=== PATIENT | female | born 2000 | race Caucasian/White ===

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

== ENCOUNTER 2023-08-03 10:38 | Inpatient (IN) | payer BC, SELFPAY ==
[2023-08-03] VITALS (83 sets, daily range): BP systolic 82–153; BP diastolic 41–109; PULSE 46–148; RESP 16–20; TEMP 36.8–37.2; O2SAT 98–100
[2023-08-03] MEDS: LACTATED RINGERS 1,000 ML 125 ML IV CONT (12:08)
[2023-08-03 12:12] LABS: Basophils Percent Auto 0.2 % (0.2-1.2); Eosinophils Absolute Auto 0.1 K/mm3 (0-0.3); Eosinophils Percent Auto 1.4 % (0-4.4); Hematocrit 36.8 % (37.0-47.0); Hemoglobin 12.4 g/dL (12.0-15.0); Immature Granulocyte Absolute 0.04 K/mm3 (0.00-0.031); Immature Granulocyte Percent A 0.4 % (0-0.5); Lymphocytes Absolute Auto 1.67 K/mm3 (0.9-3.2); Lymphocytes Percent Auto 18.2 % (18.3-44.2); Mean Corpuscular HGB Conc 33.7 g/dl (32-36); Mean Corpuscular Hemoglobin 29.2 pg (26-34); Mean Corpuscular Volume 86.6 fl (80-100); Mean Platelet Volume 11.8 fl (7.4-10.4); Monocytes Absolute Auto 0.8 K/mm3 (0.1-0.6); Monocytes Percent Auto 8.5 % (2.6-8.5); Neutrophils Absolute Auto 6.5 K/mm3 (1.3-6.7); Neutrophils Percent Auto 71.3 % (45.5-73.1); Platelet Count Result 249 k/mm3 (150-375); Red Blood Count 4.25 M/mm3 (4.2-5.4); Red Cell Distribution Width 12.6 % (11.5-14.5); White Blood Count 9.2 K/mm3 (4.5-10.0)
--- NOTE | 2023-08-03 12:12 | ADMGEN ---
This patient, Carmen Lizama, was admitted to Labor/Delivery/Recovery 105-00. Patient/family oriented to hospital policies and general routines including ID bracelet, bed and alarms, visiting hours, pain management, procedures, bathroom and other care routines, personal items, smoking policy, room service/diet, and visiting hours. Information on how to activate the Rapid Response Team has been discussed. Patient/Family are encouraged to report perceived risks to care and to ask questions if they do not understand what they are told or what they should do.
--- NOTE | 2023-08-03 12:14 | LDADM ---
This patient, Carmen Lizama, was admitted to Labor/Delivery/Recovery 105 on 08/03/23 at 10:39. Plans for labor, pain management and were discussed with patient. Patient/family oriented to hospital policies and general routines including ID bracelet, bed and alarms, visiting hours, pain management, procedures, bathroom and other care routines, personal items, smoking policy, room service/diet and guest tray routines, infant security routines, and visiting hours. Patient/Family are encouraged to report perceived risks to care and to ask questions if they do not understand what they are told or what they should do. See OBIX for further documentation.
--- NOTE | 2023-08-03 12:17 | PM.IMHP ---
H&P: HPI History of Present Illness Date/Time: 08/03/23 12:17 Chief Complaint: leakage of fluid Narrative: Carmen is a 23yo @ 36.4wks who presented to L&D w/ complaints of leakage of fluid since 0830 this morning. She is having contractions. No vaginal bleeding. She has been feeling good movements. She has had care at [place]. She has a h/o x1; that complicated by IUGR. Review of Systems Constitutional: Constitutional: Denies chills, Denies fever(s) and Denies headache(s) Eyes: Eyes: Denies change in vision ENT: Denies headache(s) Cardiovascular: Cardiovascular: Denies chest pain and Denies dyspnea Respiratory: Respiratory: Denies dyspnea Genitourinary: Genitourinary: Denies abnormal vaginal bleeding and Reports vaginal discharge Neurologic: Denies headache(s) Psychiatric: Psychiatric: Denies anxiety and Denies depression [facility] Past Medical History Medical History Chronic depression Healthy female adult Surgical History Surgical History No significant past surgical history Family History Family History Mother Bipolar 1 disorder Depression Social History Social History Smoking status: Never smoker Alcohol intake: never Substance use: never Substance use type: does not use Gender identity (if verbalized by the patient): Female Spiritual care concerns: No Meds Home Medications and Allergies Home Medications Medication Instructions Recorded Confirmed Type paroxetine HCl 20 mg tablet (Paxil) 20 mg PO QAM 10/12/20 10/13/20 History sulfamethoxazole 800 1 tablet PO Q12H #20 tabs 11/18/20 Rx mg-trimethoprim 160 mg tablet (Bactrim DS) Allergies Allergy/AdvReac Type Severity Reaction Status Date / Time No Known Allergies Allergy Verified 11/18/20 13:10 Vital Signs Vital Signs - 24 hr 08/03/23 11:05 08/03/23 11:15 08/03/23 11:31 Pulse Rate 71 68 68 Blood Pressure 125/83 127/85 125/81 08/03/23 11:46 08/03/23 12:01 08/03/23 12:16 Pulse Rate 64 70 64 Blood Pressure 131/75 135/83 119/79 Exam Const: General: cooperative, healthy appearing, no acute distress and obese Nutritional Appearance: obese Orientation/consciousness: patient oriented x3 Resp: Effort & Inspection: normal respiratory effort Cardio: Rate: regular rate GI: GI Palp: No abdominal tenderness : Other: FHT's: 140's/ mod evan/ + accels/ occasional variable decels - cat 2 but reassuring TOCO: ctxs q4-6min Cervix: 3.5/80/-3 Membranes: grossly ruptured, clear Presentation: cephalic Skin: General skin exam: normal color Neuro: General: patient oriented x3 Extrem: General: normal to inspection Psych: Appearance: grossly normal Affect: normal affect Attitude: cooperative Assessment and Plan Assessment and plan (1) premature rupture of membranes (PPROM) with unknown onset of labor: Code(s): O42.919 - premature rupture of membranes, unspecified as to length of time between rupture and onset of labor, unspecified trimester Status: Acute Plan - PROM after 34wks in early labor -- will admit for augmentation and delivery - GBS unknown and ; will treat for GBS ppx w/ amp - ANCS; betamethasone 12mg IM - continuous monitoring; currently reassuring - anesthesia consult PRN pain
[2023-08-03] MEDS: AMPICILLIN 2 GM/NS 100 ML 2 GM/100 ML BAG IVPB (12:40)
[2023-08-03] MEDS: BETAMETHASONE SOD PHOS/ACETATE 30 MG/5 ML VIAL 12 MG IM (12:40)
--- NOTE | 2023-08-03 13:01 | WPDANESEPP ---
Anes - Eval Pre Procedure Procedure: epidural for labor Date/Time: 08/03/23 13:01 Surgeon: [place] Preop Diagnosis: pain during labor Pre Op Diagnosis: leaking Patient Data Age: 23 Gender: F Height: Weight: Last Vital Signs Pulse 76 08/03/23 12:46 BP 138/93 H 08/03/23 12:46 O2 Del Method Room Air 08/03/23 12:12 Allergies Allergy/AdvReac Type Severity Reaction Status Date / Time No Known Allergies Allergy Verified 11/18/20 13:10 Home Medications Medication Instructions Recorded Confirmed Type paroxetine HCl 20 mg tablet (Paxil) 20 mg PO QAM 10/12/20 10/13/20 History sulfamethoxazole 800 1 tablet PO Q12H #20 tabs 11/18/20 Rx mg-trimethoprim 160 mg tablet (Bactrim DS) Laboratory Tests 08/03/23 12:01 WBC 9.2 K/mm3 (4.5-10.0) RBC 4.25 M/mm3 (4.2-5.4) Hgb 12.4 g/dL (12.0-15.0) Hct 36.8 L % (37.0-47.0) MCV 86.6 fl (80-100) MCH 29.2 pg (26-34) MCHC 33.7 g/dl (32-36) RDW 12.6 % (11.5-14.5) Plt Count 249 k/mm3 (150-375) MPV 11.8 H fl (7.4-10.4) Immature Gran % (Auto) 0.4 % (0-0.5) Neut % (Auto) 71.3 % (45.5-73.1) Lymph % (Auto) 18.2 L % (18.3-44.2) [place] % (Auto) 8.5 % (2.6-8.5) Eos % (Auto) 1.4 % (0-4.4) Baso % (Auto) 0.2 % (0.2-1.2) Lymph # (Auto) 1.67 K/mm3 (0.9-3.2) [place] # (Auto) 0.8 H K/mm3 (0.1-0.6) Eos # (Auto) 0.1 K/mm3 (0-0.3) Baso # (Auto) 0.0 K/mm3 (0.0-0.1) Abs Immat Gran (auto) 0.04 H K/mm3 (0.00-0.031) Absolute Neuts (auto) 6.5 K/mm3 (1.3-6.7) Absolute Nucleated RBC 0.0 K/mm3 (0.0-0.012) Nucleated RBC % 0.0 % (0.0-0.2) RPR Pending Blood Type Pending Antibody Screen Pending Patient hx anesthesia problems: none Family hx anesthesia problems: none Results Review: All pre-operative results and documents have been reviewed as part of the pre-operative evaluation. [facility] Past Medical History Medical History Chronic depression Healthy female adult Surgical History Surgical History No significant past surgical history Family History Family History Mother Bipolar 1 disorder Depression Social History Social History Smoking status: Never smoker Alcohol intake: never Substance use: current Substance use type: does not use Lack of Transportation: No Lack of Food: Never True Current Housing: I Have Housing Concerned About Future Housing: No Difficulty Paying Gas/Electric Bills: No Difficulty Paying for Meds: No Currently Unemployed: No Education: High School Diploma/GED Difficulty w/ Childcare or Family Care: No Gender identity (if verbalized by the patient): Female Spiritual care concerns: No Exam Day of Procedure 08/03/23 13:01 Patient weight: normal Lungs: clear to auscultation Airway: Mallampati scale class II Neurological: alert and oriented
--- NOTE | 2023-08-03 13:07 | WPDHPUPDATE1 ---
History and Physical Update Update Date/Time: 08/03/23 13:07 History and Physical has been reviewed, including an updated exam of the patient. There are NO changes in the patient's condition. Risks, benefits, and alternatives have been discussed and questions answered. Patient agrees to proceed with procedure.
[2023-08-03] MEDS: OXYTOCIN 30 UNITS/NS 500 ML 30 UNITS/500 ML BAG 999 UNITS IV CONT (14:00)
--- NOTE | 2023-08-03 14:08 | PM.OBPRVD ---
OB - Delivery Note Procedure Delivery date: 08/03/23 Events: Premature Rupture of Membranes (GBS unknown) Delivery monitor: External FHT and External Uterine Route of delivery: Laceration Description: Periurethral Specimen: Yes (placenta) Quantitative Blood Loss (ml): 150 Anesthesia type: Epidural Disposition: Floor [place] Baby Date of : 08/03/23 Time of : 13:56 Weeks of gestation at delivery: 36 (4) Infant gender: Female Weight (pounds): 4 Weight (ounces): 10 presentation: vertex Placenta delivery description: Spontaneous Cord Vessel Description: 3 Vessels, Nuchal Cord, Loose (/delivered through) and Delayed Cord Clamping score one minute: 9 score five minutes: 9 Narrative: Carmen received her epidural and rapidly progressed to complete dilation with strong desire to push. She pushed for 2 contractions and delivered the head over intact perineum. Nuchal cord was noted but loose and delivered through. She easily delivered the infant's shoulders and body without complication. The infant was immediately placed skin to skin and had spontaneous cry. Delayed cord clamping was performed. The umbilical cord was then doubly clamped and cut. A segment of cord was collected for cord gases. The remaining cord blood was collected for typing. With Pitocin running and gentle downward traction on the cord, the placenta delivered without complications. She was found to be firm with minimal bleeding. She was examined and a small periurethral laceration was identified but not bleeding therefore no stitch was placed. Sponge, lap, instrument, needle counts were correct at the end of the procedure. Mom and baby were left bonding birthing suite in stable condition. [facility] Delivery Billing Delivery Delivery: Delivery Charge
[2023-08-03] MEDS: OXYTOCIN 30 UNITS/NS 500 ML 30 UNITS/500 ML BAG 125 UNITS IV CONT (14:37)
--- NOTE | 2023-08-03 17:00 | PC.NURSE ---
Patient transferred to post room #292 via wheelchair. Support person present. Oriented to unit, room, information board, rooming in, admission packet and security measures. Patient verbalizes understanding.
[2023-08-03] MEDS: ZOLPIDEM TARTRATE (*CRX) 5 MG TABLET PO (18:55)
[2023-08-03] MEDS: BENZOCAINE 20% AER SPR (*SP) 56 GM CAN 1 SPRAY TOPICAL (18:55)
[2023-08-03] MEDS: IBUPROFEN 600 MG TABLET PO (18:55)
[2023-08-03] MEDS: SULFAMETHOXAZOLE/TRIMETHOPRIM 800/160 MG DS TABLET 1 TAB PO (21:03)
[2023-08-04] MEDS: IBUPROFEN 600 MG TABLET PO (03:50)
[2023-08-04 04:56] LABS: Hematocrit 39.6 % (37.0-47.0); Hemoglobin 13.1 g/dL (12.0-15.0)
--- NOTE | 2023-08-04 07:22 | PM.OBPNVD ---
OB - PN: Subj Subjective Date/time seen: 08/04/23 07:22 Narrative: PPD#1 Carmen reports doing well today. 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 Her pain is controlled. She is tolerating regular diet, voiding, passing gas, and ambulating without issues. She would like to be discharged to no care bed tomorrow as her daughter will need to stay until she grows. OB - PN: Obj Data Labs 08/04/23 03:44 Labs: Laboratory Results - last 24 hr 08/03/23 08/04/23 12:01 03:44 WBC 9.2 RBC 4.25 Hgb 12.4 13.1 Hct 36.8 L 39.6 MCV 86.6 MCH 29.2 MCHC 33.7 RDW 12.6 Plt Count 249 MPV 11.8 H Immature Gran % (Auto) 0.4 Neut % (Auto) 71.3 Lymph % (Auto) 18.2 L [place] % (Auto) 8.5 Eos % (Auto) 1.4 Baso % (Auto) 0.2 Lymph # (Auto) 1.67 [place] # (Auto) 0.8 H Eos # (Auto) 0.1 Baso # (Auto) 0.0 Abs Immat Gran (auto) 0.04 H Absolute Neuts (auto) 6.5 Absolute Nucleated RBC 0.0 Nucleated RBC % 0.0 Blood Type O Positive Antibody Screen Negative OB - PN A/P Assessment and Plan (1) delivery, delivered: Code(s): O60.10X0 - labor with delivery, unspecified trimester, not applicable or unspecified Status: Acute Plan day: 1 Plan: routine care and discharge home (tomorrow to no care bed) Comments: - Pelvic rest; take meds as prescribed - ER return precautions: fever, n/v/abd pain, bleeding, HTN Time Spent With Patient Time: Total time spent is greater than 50% in coordination of care (as documented) at patient's floor/unit and/or counseling patient: Review of Systems Constitutional: Constitutional: Denies chills, Denies fever(s) and Denies headache(s) Eyes: Eyes: Denies change in vision ENT: Denies dizziness and Denies headache(s) Cardiovascular: Cardiovascular: Denies chest pain, Denies palpitations and Denies dyspnea Respiratory: Respiratory: Denies cough and Denies dyspnea Gastrointestinal: Gastrointestinal: Denies nausea and Denies vomiting Neurologic: Denies dizziness and Denies headache(s) Endocrine: Endocrine: Denies palpitations Exam Const: General: cooperative, comfortable and no acute distress Orientation/consciousness: patient oriented x3 Resp: Effort & Inspection: normal respiratory effort Auscultation: clear to auscultation bilaterally Cardio: Rate: regular rate GI: Inspection: non-distended GI Palp: No abdominal tenderness and Yes Soft to palpation Auscultation: normal bowel sounds : Other: fundus firm Skin: General skin exam: normal color Neuro: General: patient oriented x3 Extrem: General: normal to inspection Psych: Appearance: grossly normal Affect: normal affect Attitude: cooperative
[2023-08-04 08:36] LABS: Rapid Plasma Reagin Non-Reactive (NonReactive)
[2023-08-04 08:55] VITALS: BP 111/67; PULSE 55; RESP 18; TEMP 37.1; O2SAT 100
[2023-08-04 11:58] VITALS: BP 128/64; PULSE 62; RESP 18; TEMP 37; O2SAT 99
--- NOTE | 2023-08-04 12:01 | WPDANLDPN2 ---
Anes-Prog Note L&D Date/Time: 08/04/23 12:01 Neuro status: Neuro function grossly intact. Cardiovascular status: normal Respiratory status: normal Airway patency: baseline Mental status: baseline Post-Op hydration status: normal Vital Signs: Last Vital Signs Temp 37.1 C 08/04/23 08:55 Pulse 55 L 08/04/23 08:55 Resp 18 08/04/23 08:55 BP 111/67 08/04/23 08:55 Pulse Ox 100 08/04/23 08:55 O2 Del Method Room Air 08/03/23 23:45 Pain score (VAS): 2/10 I/O: Intake & Output 08/03/23 08/04/23 08/04/23 23:59 07:59 15:59 Intake Total 120 Balance 120 Post-procedural complaints: none Patient feedback: Patient satisfied with anesthetic care.
[2023-08-04] MEDS: TETANUS,DIPHTHERIA,AC PERTUSSIS ADULT (0.5 ML) BOOSTRIX IM (12:15)
--- NOTE | 2023-08-04 13:32 | PC.NURSE ---
Patient and father of baby requesting discharge home today. Discussed that baby is 36 week low weight baby that hide and skin classer will not discharge today. Patient and father of baby verbalized interesting in taking baby home without discharge order from pedi. Discussed that this would be against medical advice and DCFS may become involved. Patient and father of baby stated that they are having difficulty getting childcare for their 3 year old. Discussed options of one parent leaving or patient becoming no care bed which they can leave baby here and we can save the room and they can come and go as needed. Voiced understanding. OB notified and discharge order received.
--- NOTE | 2023-08-04 14:48 | PCCCNOTE ---
Care Coordination met with pt. and FOB this afternoon to discuss discharge planning. Pt.'s current D/C plan is to return home with baby and her family. Pt. lives with her parents and 3 year old son. Pt. is independent with ADLs and ambulation. She has no medical equipment at home and denies any D/C needs at this time. Pt. is current with [facility] for her other child and will follow up. She has everything needed to safely bring baby home. Pt. denies any DCFS cases opened. Pt. provided basket. Will follow.
--- NOTE | 2023-08-04 16:48 | PC.NURSE ---
Patient viewed the discharge video Mother & Baby Care, The First Two Weeks . Patient was given the opportunity and encouraged to ask questions. Patient verbalized understanding of information shared and has been given the mother/baby guide for home reference.
--- NOTE | 2023-08-05 09:41 | PM.OBDSVD ---
DS: Admitting Diagnosis Discharge Date 08/04/23 Admitting Diagnosis labor PROM DS: Discharge Diagnosis Discharge Diagnosis (1) delivery, delivered: Code(s): O60.10X0 - labor with delivery, unspecified trimester, not applicable or unspecified Status: Acute OB - DS: Summary OB Procedures : Ultrasound OB Procedures Intrapartum: Spontaneous Vag Delivery OB Procedures: : None Peripartum Data Delivery Method: Natural Vaginal complications: none 1: Gender: Female Disposition of : other (admitted for feeding/growing) Status at Discharge Functional status at discharge: independent ambulation Overall status at discharge: patient is back to baseline Time Spent with Patient Time attestation: Total time spent providing and/or coordinating discharge services: Time spent: Less than 30 minutes Exam Const: General: cooperative, comfortable and no acute distress Orientation/consciousness: patient oriented x3 Resp: Effort & Inspection: normal respiratory effort Auscultation: clear to auscultation bilaterally Cardio: Rate: regular rate GI: Inspection: non-distended GI Palp: No abdominal tenderness and Yes Soft to palpation Auscultation: normal bowel sounds : Other: fundus firm Skin: General skin exam: normal color Neuro: General: patient oriented x3 Extrem: General: normal to inspection Psych: Appearance: grossly normal Affect: normal affect Attitude: cooperative DS: Data Data Completed and Pending Pending studies at discharge: Pending at discharge 08/03/23 17:40 Surgical [PTH] Routine Discharge Plan Discharge Attending physician on discharge: Dawna Bojorquez Discharging Clinician: Dawna Bojorquez Anticipated Discharge Date/Time: 08/05/23 10:00 Patient Disposition: Home, Self-Care Activity: pelvic rest Diet: regular Discharge Instructions: Education: Mom and Baby Guide Given to: Mother Follow-Up: Call your delivering provider's office for an appointment to be seen in: 4 Weeks Mom and baby should come to the [facility] for the follow-up appointment. Appointment Date/Time: to be scheduled with baby discharge What to expect at your follow-up visit: Physical Assessment Call [phone] if you are unable to keep your appointment time. BREAST CARE: * Wear a snug supportive bra. * For engorgement discomfort: Bottle Feeding: * May apply ice packs EPISIOTOMY/PERINEAL CARE: * Until bleeding stops, use your maribel bottle after urinating * Change your pad frequently throughout the day * You may take sitz baths several times a day (fill your bathtub with warm water and soak for 20 minutes.) Do NOT bathe in the water * No tub baths until seen by your physician - You may shower ACTIVITY: * Rest as much as possible. * Do not exercise or lift anything heavier than your baby (such as laundry or other children.) * Avoid stairs or driving as much as possible. * Do not put anything into the vagina. No douching, tampons, or sexual activity until seen by physician. NOTIFY PHYSICIAN IF YOU HAVE ANY QUESTIONS OR IF ANY OF THE FOLLOWING SYMPTOMS OCCUR: * If your perineum becomes red, swollen, or more painful than what you have experienced in the hospital. * If your vaginal bleeding becomes foul smelling. * If your vaginal bleeding becomes more heavy than a period or if your bleeding changes from pink to bright red. However, you may pass an occasional walnut-sized clot once or twice for the first week . * If you experience a sharp, shooting pain in you calves. * If you discover a hard, reddened area on your breast or if you experience flu-like symptoms. DIET: * Eat regular, well-balanced meals. * Drink plenty of fluids daily. If , drink to thirst. Stand Alone Forms: General Discharge Information
== END 2023-08-04 16:00 | disposition home or self-care (01) | DRG 560 ==
LOC: ANHLDR 11:19 → ANHOB2 17:07
PROVIDERS: Admitting Provider Obstetrics & Gynecology; PCP Physician Assistant; Visit Provider Obstetrics & Gynecology
DX: O60.14X0 Preterm labor third trimester with preterm delivery third trimester, not applicable or unspecified (principal); Z37.0 Single live birth; O36.5930 Maternal care for other known or suspected poor fetal growth, third trimester, not applicable or unspecified; O69.81X0 Labor and delivery complicated by cord around neck, without compression, not applicable or unspecified; Z3A.36 36 weeks gestation of pregnancy; O71.82 Other specified trauma to perineum and vulva
CPT/HCPCS: 36415; 84112; 85014; 85018; 85025; 86592; 86850; 86900; 86901; 88307; 90715; A9270; J0290; J0702; J2590; J2795; J7120

== ENCOUNTER 2024-02-06 12:36 | Emergency (ER) | payer BC, SELFPAY ==
--- NOTE | ~2024-02-06 | XR_ITS ---
XR chest 2V DATE: 02/06/2024 13:13 INDICATION: Chest pain TECHNIQUE: PA and lateral views COMPARISON: None FINDINGS: Normal heart size. No hilar or mediastinal enlargement. Moderate bilateral hyperinflation. No pulmonary infiltrate or consolidation, pleural effusion or pulmonary vascular congestion or pneumo thorax. IMPRESSION: Moderate bilateral hyperinflation; otherwise no active cardiopulmonary disease Reviewed, dictated and finalized at location B. IMPRESSION: Moderate bilateral hyperinflation; otherwise no active cardiopulmon briana disease
[2024-02-06 12:39] VITALS: BP 107/69; PULSE 61; RESP 18; TEMP 36.8; O2SAT 100
--- NOTE | 2024-02-06 12:42 | ECG_ITS ---
Measurements Intervals Linch Rate: 55 P: 57 [place]: 141 QRS: 55 QRSD: 114 T: 56 QT: 408 QTc: 392 Interpretive Statements SINUS BRADYCARDIA INCOMPLETE RIGHT BUNDLE BRANCH BLOCK BASELINE ARTIFACT- I, II, III, AVR, AVL BORDERLINE ECG COMPARED TO ECG 10/12/2020 22:45:44 INCOMPLETE RIGHT BUNDLE-BRANCH BLOCK NOW PRESENT Electronically Signed On 02-06-2024 13:15:17 CDT by Eddie Hall D.O.
[2024-02-06 12:59] LABS: Basophils Percent Auto 0.4 % (0.2-1.2); Eosinophils Absolute Auto 0.1 K/mm3 (0-0.3); Eosinophils Percent Auto 0.7 % (0-4.4); Hematocrit 39.9 % (37.0-47.0); Hemoglobin 13.9 g/dL (12.0-15.0); Immature Granulocyte Absolute 0.01 K/mm3 (0.00-0.031); Immature Granulocyte Percent A 0.1 % (0-0.5); Lymphocytes Absolute Auto 1.55 K/mm3 (0.9-3.2); Lymphocytes Percent Auto 22.8 % (18.3-44.2); Mean Corpuscular HGB Conc 34.8 g/dl (32-36); Mean Corpuscular Hemoglobin 30.4 pg (26-34); Mean Corpuscular Volume 87.3 fl (80-100); Mean Platelet Volume 10.3 fl (7.4-10.4); Monocytes Absolute Auto 0.7 K/mm3 (0.1-0.6); Monocytes Percent Auto 9.9 % (2.6-8.5); Neutrophils Absolute Auto 4.5 K/mm3 (1.3-6.7); Neutrophils Percent Auto 66.1 % (45.5-73.1); Platelet Count Result 369 k/mm3 (150-375); Red Blood Count 4.57 M/mm3 (4.2-5.4); Red Cell Distribution Width 12.4 % (11.5-14.5); White Blood Count 6.8 K/mm3 (4.5-10.0)
[2024-02-06 13:13] LABS: Prothrombin Time 13.4 Seconds (11.1-14.7)
[2024-02-06 13:14] LABS: Alanine Aminotransferase 22 U/L (6-35); Albumin Level 4.9 g/dL (3.5-5.1); Alkaline Phosphatase 81 U/L (38-126); Anion Gap 11 mmol/L (8-16); Aspartate Amino Transferase 29 U/L (14-36); Bilirubin,Total 0.6 mg/dL (0.2-1.3); Blood Urea Nitrogen 14 mg/dL (7-17); Calcium 9.8 mg/dL (8.4-10.2); Carbon Dioxide 20 mmol/L (22-30); Chloride 107 mmol/L (98-107); Estimated CRCL calculation 116 ml/min; Estimated Glomerular Filt Rate > 60; Glucose 100 mg/dL (65-110); Lipase 49 U/L (23-300); Partial Thromboplastin Time 25.1 Seconds (22.3-36.8); Potassium 3.3 mmol/L (3.4-5.0); Sodium 138 mmol/L (137-145)
[2024-02-06 13:28] LABS: Troponin I < 0.012 ng/mL (0.000-0.034)
[2024-02-06 14:23] VITALS: PULSE 57; RESP 17; O2SAT 100
[2024-02-06 14:24] VITALS: BP 110/70; PULSE 62; RESP 12; O2SAT 100
[2024-02-06 14:30] VITALS: PULSE 71; RESP 18; O2SAT 100
[2024-02-06 14:31] VITALS: BP 120/71; PULSE 61; RESP 14; O2SAT 100
--- NOTE | 2024-02-06 14:35 | ED.CHESTPAIN ---
HPI - Chest Pain General Chief Complaint: Chest Pain Stated Complaint: lt sd chest pain Time Seen by Provider: 02/06/24 14:18 History of Present Illness HPI narrative: 23-year-old female presenting with chest pain. Patient states that yesterday she was having some intermittent left-sided chest pain that she thought would just go away. It was worsened with certain movements some positional changes as well as taking a big breath. She was able to go to sleep and then woke up this morning and it was still mildly there. States that she then had a panic attack and it became much more severe. Denies shortness of breath. No leg swelling. States that she had nausea and vomiting over the weekend but this has resolved. No further complaints. Related Data Allergies Allergy/AdvReac Type Severity Reaction Status Date / Time No Known Allergies Allergy Verified 08/03/23 15:54 Review of Systems Review of Systems: All systems reviewed & are unremarkable except as noted in HPI and below PMFSH Past Medical History Medical History Chronic depression Healthy female adult Surgical History Surgical History No significant past surgical history Family History Family History Mother Bipolar 1 disorder Depression Social History Social History Smoking status: Never smoker Alcohol intake: never Substance use: current Substance use type: does not use Lack of Transportation: No Lack of Food: Never True Current Housing: I Have Housing Concerned About Future Housing: No Difficulty Paying Gas/Electric Bills: No Difficulty Paying for Meds: No Currently Unemployed: No Education: High School Diploma/GED Difficulty w/ Childcare or Family Care: No Gender identity (if verbalized by the patient): Female Spiritual care concerns: No Exam Narrative: GENERAL: Well-appearing, no acute distress, pleasant cooperative HEAD: Normocephalic, atraumatic. EYES: PERRLA and EOMI. ENT: N grossly unremarkable NECK: Supple. CHEST: Clear to auscultation. No respiratory distress. Tender over left lower chest wall HEART: Regular rate and rhythm. ABDOMEN: Soft, nontender, nondistended EXTREMITIES: Normal range of motion. No edema. SKIN: Warm, dry, no rash. NEURO: Alert and oriented x3. PSYCH: Normal mood and affect. Course Vital Signs Vital signs: Vital Signs Temperature 98.2 F 02/06/24 12:39 Pulse Rate 61 02/06/24 12:39 Respiratory Rate 18 02/06/24 12:39 Blood Pressure 107/69 02/06/24 12:39 Pulse Oximetry 100 02/06/24 12:39 Temperature 98.2 F 02/06/24 12:39 Pulse Rate 65 02/06/24 14:47 Respiratory Rate 14 02/06/24 14:47 Blood Pressure 120/71 02/06/24 14:31 Pulse Oximetry 100 02/06/24 14:47 Oxygen Delivery Room Air 02/06/24 14:23 MDM - Chest Pain MDM Narrative Medical decision making narrative: 23-year-old female presenting with left-sided chest pain. Vitals are stable. exam remarkable for the above. Perc negative. EKG per my interpretation shows sinus bradycardia, incomplete right bundle-branch block, no ST elevations or depressions. Blood work with mild hypokalemia. Patient states that she has had nausea and vomiting over the weekend and has not been eating much. Advised that she eat some potassium rich foods, drink Gatorade or Powerade. Troponin undetectable. Chest x-ray without acute abnormalities. Feel the patient is safe for outpatient management. Will treat with Toradol, advised ibuprofen and Tylenol at home. Recommend close PCP follow-up. Patient is agreeable this plan. Discharged in stable condition. Differential Diagnosis Differential diagnosis: Likely atypical chest pain, costochondritis and chest pain Medical Records Da
[2024-02-06 14:47] VITALS: PULSE 65; RESP 14; O2SAT 100
[2024-02-06] MEDS: KETOROLAC 30 MG/ML VIAL (*BKC) IV PUSH (15:01)
== END 2024-02-06 15:04 | disposition home or self-care (01) ==
LOC: ANHED 14:41
PROVIDERS: Nurse Practitioner Family; Emergency Provider Emergency Medicine; PCP Physician Assistant
DX: R07.89 Other chest pain (principal); I45.10 Unspecified right bundle-branch block; R00.1 Bradycardia, unspecified
CPT/HCPCS: 36415; 71046; 80053; 83690; 84484; 85025; 85610; 85730; 93005; 96374; 99284; J1885

== ENCOUNTER 2025-11-10 10:15 | Emergency (ER) | payer BC, SELFPAY ==
[2025-11-10 10:42] VITALS: BP 124/68; PULSE 102; RESP 18; TEMP 36.9; O2SAT 96
--- NOTE | 2025-11-10 12:14 | ED.URI ---
HPI - URI/Sore Throat General Chief Complaint: Upper Respiratory Infection Stated Complaint: I have a really bad head cold' Time Seen by Provider: 11/10/25 11:45 Source: patient Mode of arrival: ambulatory Limitations: no limitations History of Present Illness HPI Narrative: This is a 25-year-old female with no significant past medical history presents the ED for flu-like symptoms. Patient states that for the past day, she has been having a headache, sinus congestion, cough productive of yellow sputum. She has had contact with her boyfriend who reports similar symptoms last week. She has had a subjective fever. Denies chest pain, shortness of breath, dysuria, hematuria. Related Data Allergies Allergy/AdvReac Type Severity Reaction Status Date / Time No Known Allergies Allergy Verified 08/03/23 15:54 Review of Systems Review of Systems: All systems reviewed & are unremarkable except as noted in HPI and below PMFSH Past Medical History Medical History Chronic depression Healthy female adult Surgical History Surgical History No significant past surgical history Family History Family History Mother Bipolar 1 disorder Depression Social History Social History Smoking status: Never smoker Alcohol intake: never Substance use: current Substance use type: does not use Lack of Transportation: No Lack of Food: Never True Current Housing: I Have Housing Concerned About Future Housing: No Difficulty Paying Gas/Electric Bills: No Difficulty Paying for Meds: No Currently Unemployed: No Education: High School Diploma/GED Difficulty w/ Childcare or Family Care: No Gender identity (if verbalized by the patient): Female Spiritual care concerns: No Exam Narrative: APPEARANCE: No acute distress, nontoxic, resting in bed EYES: EOMI HEENT: Normocephalic, atraumatic, OMM RESPIRATORY: No respiratory distress Clear to auscultation bilaterally with no rhonchi wheezing or rales. CARDIOVASCULAR: Regular rate and rhythm without murmurs rubs or gallops. ABDOMINAL: Soft, nontender, nondistended, no rebound or guarding MUSCULOSKELETAl: Moves all extremities. No clubbing, cyanosis or edema. NEURO: Awake and alert. Following commands, speech normal, no focal deficits SKIN:: Warm, dry. No rashes lesions or abrasions PSYCHIATRIC: Normal affect/mood, Course Vital Signs Vital signs: Vital Signs Temperature 98.4 F 11/10/25 10:42 Pulse Rate 102 H 11/10/25 10:42 Respiratory Rate 18 11/10/25 10:42 Blood Pressure 124/68 11/10/25 10:42 Pulse Oximetry 96 11/10/25 10:42 Oxygen Delivery Room Air 11/10/25 10:42 Temperature 98.4 F 11/10/25 10:42 Pulse Rate 102 H 11/10/25 10:42 Respiratory Rate 18 11/10/25 10:42 Blood Pressure 124/68 11/10/25 10:42 Pulse Oximetry 96 11/10/25 10:42 Oxygen Delivery Room Air 11/10/25 11:30 MDM MDM Narrative Medical decision making narrative: 25-year-old female Presenting for flu-like symptoms. On initial evaluation patient was in no acute distress afebrile, hemodynamic stable. Differentials include but are not limited to: Viral syndrome, strep pharyngitis, viral pharyngitis, sinusitis, laryngitis, [employer], RPA Notable exam findings: Heart and lungs clear, abdomen soft and nontender I personally reviewed the patient's lab result. Notable lab findings: Positive for influenza A Discussed treatment options with patient including the risks and benefits of Tamiflu. Patient does request Tamiflu at this time. She was be given a prescription for Zofran. She was advised follow-up with her PCP in the next week for re-evaluation. Patient was agreeable to this plan. Given strict return precautions. Differential Diagnosis Differential Diagnosis: Viral syndrome, strep pharyngitis, viral pharyngitis, sinusitis, laryngitis, [employer]GER, RPA Lab Data Labs: Lab Results 11/10/25 Range/Units 11:49 Influenza A (RT-PCR) Positive A (Negative) Influenza B (RT-PCR) Negative (Negative) RSV (RT-PCR) Negative (Negative) SARS-CoV-2 RNA (RT-PCR) Negative (Negative) Discharge Plan Discharge Clinical Impression: Influenza A Patient Disposition: Home Condition: Stable Instructions: Antibiotic Form, Influenza (ED) Additional Instructions: You tested positive for influenza A. You may take Tylenol ibuprofen for your symptoms. Your given a prescription for Tamiflu, take this as prescribed. Follow-up with your PCP in the next week for re-evaluation. Return to the ED for any new or worsening symptoms. Patient Language: [place] Prescriptions: New ondansetron 4 mg tablet,disintegrating 4 mg PO Q8H PRN (Reason: nausea and vomiting) Qty: 12 0RF oseltamivir [Tamiflu] 75 mg capsule 75 mg PO Q12H 5 Days Qty: 10 0RF No Action acetaminophen [Mapap (acetaminophen)] 325 mg Tablet 650 mg PO Q6H PRN (Reason: Mild Pain (1-3) Or Headache) Qty: 60 0RF ibuprofen 600 mg Tablet 600 mg PO Q6H PRN (Reason: Cramping) Qty: 40 0RF Follow-up/Referrals: Olivia,CITLALLI Briseno [Primary Care Provider, Medical]
[2025-11-10] MEDS: ACETAMINOPHEN 500 MG TABLET 1000 MG PO (12:17)
[2025-11-10 12:31] LABS: Influenza A QL RT-PCR Positive (Negative); Influenza B QL RT-PCR Negative (Negative); RSV RNA, RT-PCR Negative (Negative); SARS-CoV-2 RNA PCR Negative (Negative)
== END 2025-11-10 12:59 | disposition home or self-care (01) ==
PROVIDERS: Emergency Provider Student in an Organized Health Care Education/Training Program; PCP Physician Assistant
DX: J10.1 Influenza due to other identified influenza virus with other respiratory manifestations (principal); Z20.822 Contact with and (suspected) exposure to COVID-19
CPT/HCPCS: 87637; 99283; A9270